=== PATIENT | female | born 1985 | race Caucasian/White ===

== ENCOUNTER 2016-07-27 20:53 | Emergency (ER) | payer OTHER ==
[2016-07-27] MEDS ORDERED: IBUPROFEN 800 MG TABLET PO STA (21:27)
[2016-07-27] MEDS ORDERED: AZITHROMYCIN 250 MG TABLET PO STA (21:27)
[2016-07-27] MEDS ORDERED: IBUPROFEN 800 MG TABLET PO ONE (21:31)
[2016-07-27] MEDS ORDERED: AZITHROMYCIN 250 MG TABLET PO ONE ×2 (21:31→21:35)
== END 2016-07-27 21:41 | disposition home or self-care (01) ==
DX: J06.9 Acute upper respiratory infection, unspecified (principal); B97.89 Other viral agents as the cause of diseases classified elsewhere; H66.001 Acute suppurative otitis media without spontaneous rupture of ear drum, right ear; J45.909 Unspecified asthma, uncomplicated; F17.200 Nicotine dependence, unspecified, uncomplicated
CPT/HCPCS: 99282; 99283; A9270

== ENCOUNTER 2017-01-02 11:21 | Emergency (ER) | payer MEDICAID, OTHER ==
[2017-01-02] MEDS ORDERED: HYDROcod/ACETAM 5/325 MG TABLET PO STA (12:21)
[2017-01-02] MEDS ORDERED: CEPHALEXIN 250 MG CAPSULE PO STA (12:21)
[2017-01-02] MEDS ORDERED: HYDROcod/ACETAM 5/325 MG TABLET ONE (12:25)
[2017-01-02] MEDS ORDERED: CEPHALEXIN 250 MG CAPSULE PO ONE (12:25)
== END 2017-01-02 12:38 | disposition home or self-care (01) ==
DX: K08.89 Other specified disorders of teeth and supporting structures (principal); K02.9 Dental caries, unspecified; J45.909 Unspecified asthma, uncomplicated; F17.200 Nicotine dependence, unspecified, uncomplicated
CPT/HCPCS: 99283; A9270

== ENCOUNTER 2017-09-01 14:03 | Emergency (ER) | payer MEDICAID, OTHER ==
--- NOTE | 2017-09-01 15:47 | ED Physician Documentation ---
PD HPI UPPER EXT INJURY - Stated complaint Stated Complaint: R WRIST PAIN/NUMBNESS - Chief complaint Chief Complaint: Ext Problem - History obtained from History obtained from: Patient - History of Present Illness Location: Right, Wrist Type of injury: Other (Client care) Where injury occurred: Work Timing - onset: How many days ago (2) Timing - duration: Days (2) Timing - details: Gradual onset, Still present Improved by: Rest Worsened by: Moving, Palpating Associated symptoms: Numbness. 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 She states she has never had this happen to her previously but she does have been a bit of numbness in the fourth and fifth digits and some pain over the thumb. She did not injure this that she is aware of. She does use her wrist a lot at work and more recently. She states it is impossible for her to be . Review of Systems Constitutional: denies: Fever Eyes: denies: Decreased vision Ears: denies: Ear pain Nose: denies: Congestion Throat: denies: Sore throat Respiratory: denies: Cough GI: denies: Abdominal Pain, Nausea, Vomiting : denies: Dysuria, Frequency Skin: denies: Rash, Lesions, Abrasion (s) Musculoskeletal: reports: Extremity pain. denies: Neck pain, Back pain, Joint pain, Extremity swelling, Joint swelling Neurologic: reports: Numbness. 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 : None HEENT: None Psych: Depression, Anxiety, Panic attacks, Claustrophobia Musculoskeletal: None Derm: None - Past Surgical History Past Surgical History: Yes HEENT: Tonsil/Adenoidectomy - Present Medications Home Medications: Ambulatory Orders Medication Instructions Recorded Confirmed No Known Home Medications [No 09/01/17 09/01/17 Known Home Medications] - Allergies Allergies/Adverse Reactions: Allergies Allergy/AdvReac Type Severity Reaction Status Date / Time codeine [Codeine] Allergy Itching Verified 01/02/17 11:26 - Social History Does the pt smoke?: Yes Smoking Status: Current every day smoker Does the pt drink ETOH?: Yes Does the pt have substance abuse?: Yes - Immunizations Immunizations are current?: Yes - POLST Patient has POLST: No PD ED PE NORMAL - Vitals Vital signs reviewed: Yes - General General: Alert and oriented X 3, No acute distress, Well developed/nourished - HEENT HEENT: Atraumatic, PERRL - Respiratory Respiratory: No respiratory distress - Derm Derm: Normal color, Warm and dry, No rash - Extremities Extremities: No deformity, No edema, Other (There is no pain elicited to palpation of the median nerve.) - Neuro Neuro: Alert and oriented X 3, primer and powder canning leader 2-12 intact, No motor deficit, No sensory deficit, Normal speech Eye Opening: Spontaneous Motor: Obeys Commands Verbal: Oriented GCS Score: 15 - Psych Psych: Normal mood, Normal affect Results - Vitals Vitals: Vital Signs - 24 hr 09/01/17 09/01/17 14:07 17:36 Temperature 36.8 C 36.5 C Heart Rate 100 85 Respiratory 18 20 Rate Blood Pressure 141/92 H 130/77 O2 Saturation 100 99 Oxygen O2 Source Room air - Rads (name of study) right wrist Radiology: Prelim report reviewed (impression: no bony subluxation or abnormality), EMP read indepedently, See rad report Procedures - Splint (location) right wrist Splint applied by: Tech Type of splint: Fiberglass, Volar cock up Other: Patient tolerated well, No complications, Neurovascular intact, Good alignment PD MEDICAL DECISION MAKING - ED course Complexity details: reviewed results, re-evaluated patient, considered differential, d/w patient ED course: 31-year-old female with right wrist pain has a dorsal ganglion cyst but I am not able to feel at this time and this does not appear to be involved in the patient's complaint. She does have pain on the volar surface of the wrist and numbness into the fourth and fifth digits. I was not able to confirm carpal tunnel I am concerned mostly about that as her etiology. We have placed her into a splint for comfort and I have asked her follow-up with orthopedics. Departure - Departure Disposition: 01 Home, Self Care Clinical Impression: Carpal tunnel syndrome of right wrist Condition: Stable Instructions: ED Carpal Tunnel Follow-Up: Ofe Elkins DO [Primary Care Provider] - [facility] [Provider Group] Discharge Date/Time: 09/01/17 17:38
--- NOTE | 2017-09-01 17:28 | XRAY Preliminary Report ---
Exam: XR WRIST 4 VIEW RT IMPRESSION: No bony deformity or subluxation. [facility] SITE ID: [id number]
--- NOTE | 2017-09-01 17:28 | XRAY Report ---
EXAM: RIGHT WRIST RADIOGRAPHY EXAM DATE: 09/01/2017 05:03 PM. CLINICAL HISTORY: Volar thumb pain and numbness to 4,5. COMPARISON: None. TECHNIQUE: 4 views. FINDINGS: Bones: Normal. No fractures or bone lesions. Joints: Normal. No subluxations. Soft Tissues: No foreign body or abnormal calcifications. IMPRESSION: No bony deformity or subluxation. [facility] Referring Provider Line: [phone] SITE ID: [id number]
[2017-09-01] MEDS ORDERED: ACETAMINOPHEN 325 MG TABLET PO STA (17:30)
[2017-09-01 17:37] VITALS: BP 130/77
== END 2017-09-01 17:38 | disposition home or self-care (01) ==
LOC: ED 14:03
DX: G56.01 Carpal tunnel syndrome, right upper limb (principal); M67.431 Ganglion, right wrist; F17.200 Nicotine dependence, unspecified, uncomplicated
CPT/HCPCS: 29125; 73110; 99283; A9270

== ENCOUNTER 2018-02-16 18:07 | Emergency (ER) | payer SELFPAY ==
[2018-02-16 18:21] VITALS: BP 112/79
[2018-02-16] MEDS ORDERED: KETOROLAC 60 MG/2 ML VIAL IM STA (20:12)
--- NOTE | 2018-02-16 20:15 | ED Physician Documentation ---
History of Present Illness - Stated complaint Stated Complaint: LT ELBOW/CP/HEADACHE - Chief complaint Chief Complaint: General - History obtained from History obtained from: Patient, Family - History of Present Illness Timing: How many days ago (5-6) Pain level max: 7 Pain level now: 5 - Additonal information Additional information: Patient is a 32-year-old female who presents to the emergency department with multiple complaints. The first is left elbow pain ongoing for the last month. States it is on the lateral aspect of the elbow worse with movement, better with rest. States started after cleaning a friend's house. She also complains of a headache, frontal, gradual in onset. Similar to prior headaches. States 6 out of 10. She also complains of left-sided chest pain radiating to the left arm for the past 5 days. Nothing makes it better or worse. No change with movement, palpation or deep breathing. No recent travel, no recent immobilization. 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 : None HEENT: None Psych: Depression, Anxiety, Panic attacks, Claustrophobia Musculoskeletal: None Derm: None - Past Surgical History Past Surgical History: Yes HEENT: Tonsil/Adenoidectomy - Present Medications Home Medications: Ambulatory Orders Medication Instructions Recorded Confirmed Meloxicam [Mobic] 15 mg PO DAILY PRN #20 tablet 02/16/18 - Allergies Allergies/Adverse Reactions: Allergies Allergy/AdvReac Type Severity Reaction Status Date / Time codeine [Codeine] Allergy Itching Verified 02/16/18 18:21 - Social History Does the pt smoke?: Yes Smoking Status: Current every day smoker Does the pt drink ETOH?: Yes Does the pt have substance abuse?: Yes - Immunizations Immunizations are current?: Yes - POLST Patient has POLST: No PD ED PE NORMAL - Vitals Vital signs reviewed: Yes - General General: Alert and oriented X 3, No acute distress, Well developed/nourished - HEENT HEENT: Atraumatic, PERRL, EOMI, Ears normal, Moist mucous membranes, Pharynx benign - Neck Neck: Supple, no meningeal sign - Cardiac Cardiac: RRR, Strong equal pulses - Respiratory Respiratory: No respiratory distress, Clear bilaterally - Abdomen Abdomen: Soft, Non tender, Non distended - Derm Derm: Warm and dry - Extremities Extremities: No deformity, No tenderness to palpate, Normal ROM s pain, No calf tenderness / cord - Neuro Neuro: Alert and oriented X 3, community reinvestment act officer 2-12 intact, No motor deficit, No sensory deficit, Normal speech Eye Opening: Spontaneous Motor: Obeys Commands Verbal: Oriented GCS Score: 15 - Psych Psych: Normal mood, Normal affect Results - Vitals Vitals: Vital Signs - 24 hr 02/16/18 18:19 Temperature 36.8 C Heart Rate 96 Respiratory 18 Rate Blood Pressure 112/79 O2 Saturation 99 Oxygen O2 Source Room air - EKG (time done) 1833 Rate: Rate (enter#) (102) Rhythm: Sinus tachycardia [place]: Normal Intervals: Normal [place] QRS: Normal Ischemia: Non specific changes - Labs Labs: Laboratory Tests 02/16/18 02/16/18 02/16/18 20:31 20:31 20:31 WBC 10.3 RBC 4.92 Hgb 15.1 Hct 43.4 MCV 88.1 MCH 30.7 MCHC 34.8 RDW 13.5 Plt Count 365 MPV 7.5 L Neut # (Auto) 6.6 Lymph # (Auto) 2.7 [place] # (Auto) 0.6 Eos # (Auto) 0.1 Baso # (Auto) 0.3 H Absolute Nucleated RBC 0.01 Nucleated RBC % 0.0 Sodium 140 Potassium 3.7 Chloride 103 Carbon Dioxide 29 Anion Gap 8.0 BUN 13 Creatinine 0.8 Estimated GFR (MDRD) 84 L Glucose 110 H Calcium 9.5 Total Bilirubin 0.5 AST 21 ALT 29 Alkaline Phosphatase 81 Troponin I < 0.04 Total Protein 8.3 H Albumin 4.5 Globulin 3.8 Albumin/Globulin Ratio 1.2 Lipase 47 - Rads (name of study) cxr Radiology: Prelim report reviewed, EMP read contemporaneously, See rad report ( normal) PD MEDICAL DECISION MAKING - ED course Complexity details: reviewed results, re-evaluated patient, considered differential, d/w patient, d/w family ED course: Patient is a 32-year-old female with multiple complaints. Appears to have lateral epicondylitis of the left elbow. Will place on NSAIDs for this. Also given Toradol in the emergency department for her headache. Headache resolved. Chest pain is of unclear etiology. It is not pleuritic. No risk factors for PE. No immobilization, travel etc. Normal cardiac workup. We will have her follow-up with her doctor for further care. Patient counseled regarding signs and symptoms for which I believe and urgent re-evaluation would be necessary. Patient with good understanding of and agreement to plan and is comfortable going home at this time This document was made in part using voice recognition software. While efforts are made to proofread this document, sound alike and grammatical errors may occur. - Sepsis Event Vital Signs: Vital Signs - 24 hr 02/16/18 18:19 Temperature 36.8 C Heart Rate 96 Respiratory 18 Rate Blood Pressure 112/79 O2 Saturation 99 Oxygen O2 Source Room air Departure - Departure Disposition: 01 Home, Self Care Clinical Impression: Lateral epicondylitis of elbow Qualifiers: Laterality: left Qualified Code(s): M77.12 - Lateral epicondylitis, left elbow Chest pain Qualifiers: Chest pain type: unspecified Qualified Code(s): R07.9 - Chest pain, unspecified Headache Qualifiers: Headache type: unspecified Headache chronicity pattern: unspecified pattern Intractability: not intractable Qualified Code(s): R51 - Headache Condition: Good Instructions: ED Chest Pain Atypical Unkn Cause, ED Cephalgia Unspecified, ED Epicondylitis Lateral Elbow Follow-Up: your,doctor in 1 week [Other] Prescriptions: Meloxicam [Mobic] 15 mg PO DAILY PRN #20 tablet PRN Reason: pain Comments: Return if you worsen. This should improve over the next few days. Your tests are normal today. Discharge Date/Time: 02/16/18 21:05
--- NOTE | 2018-02-16 20:36 | XRAY Report ---
Procedure Date: 02/16/2018 Accession Number: [id number] / [id number] Procedure: XR - Chest 1 View X-Ray CPT Code: 73715 FULL RESULT: EXAM: CHEST RADIOGRAPHY EXAM DATE: 02/16/2018 08:24 PM. CLINICAL HISTORY: Chest pain. COMPARISON: XR CHEST PA AND LAT 07/26/2010. TECHNIQUE: 1 view. FINDINGS: Lungs/Pleura: No focal opacities evident. No pleural effusion. No pneumothorax. Mediastinum: Within exam limitations, the cardiomediastinal contour is normal. Other: None. IMPRESSION: Normal single view chest. [facility]
[2018-02-16 20:38] LABS: BASOPHILS # (AUTO) 0.3 10^3/uL (0.0-0.1); BASOPHILS % (AUTO) 2.9 %; EOSINOPHILS # (AUTO) 0.1 10^3/uL (0.0-0.7); EOSINOPHILS % (AUTO) 1.1 %; HGB - HEMOGLOBIN 15.1 g/dL (12.0-16.0); LYMPHOCYTES # (AUTO) 2.7 10^3/uL (1.5-3.5); LYMPHOCYTES % (AUTO) 26.2 %; MEAN CORPUSCULAR HEMOGLOBIN 30.7 pg (27.0-31.0); MEAN CORPUSCULAR HGB CONC 34.8 g/dL (32.0-36.0); MEAN CORPUSCULAR VOLUME 88.1 fL (81.0-99.0); MEAN PLATELET VOLUME 7.5 fL (7.9-10.8); MONOCYTES # (AUTO) 0.6 10^3/uL (0.0-1.0); MONOCYTES % (AUTO) 6.1 %; NEUTROPHILS # (AUTO) 6.6 10^3/uL (1.5-6.6); NEUTROPHILS % (AUTO) 63.7 %; PLT - PLATELET COUNT 365 10^3/uL (130-450); RED BLOOD COUNT 4.92 10^6/uL (4.20-5.40); RED CELL DISTRIBUTION WIDTH 13.5 % (12.0-15.0); WHITE BLOOD COUNT 10.3 x10^3/uL (4.8-10.8)
[2018-02-16 20:49] LABS: ALBUMIN 4.5 g/dL (3.2-5.5); ALBUMIN/GLOBULIN RATIO 1.2 (1.0-2.2); BILIRUBIN,TOTAL 0.5 mg/dL (0.2-1.0); CALCIUM 9.5 mg/dL (8.5-10.3); CREATININE 0.8 mg/dL (0.4-1.0); TOTAL PROTEIN 8.3 g/dL (6.7-8.2)
== END 2018-02-16 21:05 | disposition home or self-care (01) ==
LOC: ED 18:07
DX: M77.12 Lateral epicondylitis, left elbow (principal); R07.9 Chest pain, unspecified; R51 Headache; F17.200 Nicotine dependence, unspecified, uncomplicated
CPT/HCPCS: 36415; 71045; 80053; 83690; 84484; 85025; 93005; 96372; 99283

== ENCOUNTER 2019-09-01 08:00 | Outpatient (CLI) | payer MEDICAID ==
[2019-09-01 18:49] LABS: ALBUMIN 3.9 g/dL (3.2-5.5); ALBUMIN/GLOBULIN RATIO 1.3 (1.0-2.2); BILIRUBIN,TOTAL 0.4 mg/dL (0.2-1.0); CALCIUM 9.2 mg/dL (8.5-10.3); CREATININE 0.7 mg/dL (0.4-1.0)
[2019-09-01 18:50] LABS: BASOPHILS % (AUTO) 0.7 %; EOSINOPHILS # (AUTO) 0.2 10^3/uL (0.0-0.7); EOSINOPHILS % (AUTO) 2.9 %; LYMPHOCYTES # (AUTO) 1.7 10^3/uL (1.5-3.5); MEAN CORPUSCULAR HEMOGLOBIN 29.1 pg (27.0-31.0); MEAN CORPUSCULAR HGB CONC 31.7 g/dL (32.0-36.0); MEAN CORPUSCULAR VOLUME 91.7 fL (81.0-99.0); MEAN PLATELET VOLUME 9.9 fL (7.9-10.8); MONOCYTES # (AUTO) 0.3 10^3/uL (0.0-1.0); MONOCYTES % (AUTO) 5.8 %; NEUTROPHILS # (AUTO) 3.6 10^3/uL (1.5-6.6); NEUTROPHILS % (AUTO) 61.3 %; PLT - PLATELET COUNT 324 10^3/uL (130-450); RED BLOOD COUNT 4.47 10^6/uL (4.20-5.40); RED CELL DISTRIBUTION WIDTH 13.1 % (12.0-15.0); WHITE BLOOD COUNT 5.9 x10^3/uL (4.8-10.8)
== END 2019-09-01 23:59 | disposition home or self-care (01) ==
LOC: LAB.N 08:00
PROVIDERS: ATTEND Physician Assistant Medical
DX: N94.6 Dysmenorrhea, unspecified (principal)
CPT/HCPCS: 36415; 80053; 84443; 85025

== ENCOUNTER 2020-09-15 08:26 | Emergency (ER) | payer MEDICAID ==
--- NOTE | 2020-09-15 08:39 | ED Physician Documentation ---
History of Present Illness - Stated complaint Stated Complaint: TOOTH PX/FACE SWELLING - Chief complaint Chief Complaint: Heent - History obtained from History obtained from: Patient - Additonal information Additional information: Patient comes emergency department chief complaint of left maxillary wisdom tooth pain and swelling of her left cheek. Patient states that the tooth has been coming in and out and is broken and decayed. She states she has been needing to get it pulled but has not been able to do so yet. She states this morning, she woke up with swelling of her cheek. No fevers or chills. No tongue or throat swelling. No difficulty speaking or swallowing. No difficulty breathing. No other complaints at this time. Review of Systems Ten Systems: 10 systems reviewed and negative Constitutional: reports: Reviewed and negative Eyes: reports: Reviewed and negative Ears: reports: Reviewed and negative Nose: reports: Reviewed and negative Throat: reports: Dental pain / toothache Cardiac: reports: Reviewed and negative Respiratory: reports: Reviewed and negative GI: reports: Reviewed and negative : reports: Reviewed and negative Skin: reports: Reviewed and negative Musculoskeletal: reports: Reviewed and negative Neurologic: reports: Reviewed and negative Psychiatric: reports: Reviewed and negative Endocrine: reports: Reviewed and negative Immunocompromised: reports: Reviewed and negative PD PAST MEDICAL HISTORY - Past Medical History Past Medical History: Yes Cardiovascular: None Respiratory: Asthma Neuro: None Endocrine/Autoimmune: None GI: None 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 : None HEENT: None Psych: Depression, Anxiety, Panic attacks, Claustrophobia Musculoskeletal: None Derm: None - Past Surgical History Past Surgical History: Yes HEENT: Tonsil/Adenoidectomy - Present Medications Home Medications: Ambulatory Orders Medication Instructions Recorded Confirmed Amoxicillin 500 mg PO TID 7 Days #21 cap 09/15/20 HYDROcod/ACETAM 5/325 [[place] 5/325] 1 - 2 ea PO Q6H PRN #15 tablet 09/15/20 - Allergies Allergies/Adverse Reactions: Allergies Allergy/AdvReac Type Severity Reaction Status Date / Time codeine [Codeine] Allergy Itching Verified 09/15/20 08:31 - Social History Does the pt smoke?: Yes Smoking Status: Current every day smoker Does the pt drink ETOH?: Yes Does the pt have substance abuse?: Yes Substance Use and Type: Marijuana - Immunizations Immunizations are current?: Yes - POLST Patient has POLST: No PD ED PE NORMAL - Vitals Vital signs reviewed: Yes - General General: Alert and oriented X 3, No acute distress, Well developed/nourished - HEENT HEENT: Atraumatic, PERRL, EOMI, Moist mucous membranes, Other (Tenderness noted over the maxillary gingiva on the left, without swelling. Moderate left facial edema. No induration or fluctuance.No tongue swelling or lifting of oral floor. Overall good dentition, except decay of left maxillary wisdom tooth) - Neck Neck: Supple, no meningeal sign - Respiratory Respiratory: No respiratory distress - Derm Derm: Normal color, Warm and dry, No rash - Extremities Extremities: No deformity - Neuro Neuro: Alert and oriented X 3, clinical microbiologist 2-12 intact, Normal speech - Psych Psych: Normal mood, Normal affect Results - Vitals Vitals: Vital Signs - 24 hr 09/15/20 08:31 Temperature 36.4 C L Heart Rate 78 Respiratory 18 Rate Blood Pressure 113/66 O2 Saturation 100 Oxygen O2 Source Room air PD MEDICAL DECISION MAKING - ED course Complexity details: considered differential, d/w patient ED course: The patient was given a dose of amoxicillin in the emergency department. I have given her prescriptions for amoxicillin and Vicodin. She states she is going to call [facility] dental clinic today. We have discussed the usual indications for return. Departure - Departure Disposition: 01 Home, Self Care Clinical Impression: Dental infection Condition: Stable Instructions: ED Abscess Tooth Prescriptions: Amoxicillin 500 mg PO TID 7 Days #21 cap HYDROcod/ACETAM 5/325 [[place] 5/325] 1 - 2 ea PO Q6H PRN #15 tablet PRN Reason: Pain
[2020-09-15] MEDS ORDERED: AMOXICILLIN 250 MG CAPSULE PO STA (08:43)
[2020-09-15 08:56] VITALS: BP 105/69
== END 2020-09-15 08:56 | disposition home or self-care (01) ==
LOC: ED 08:26
DX: K04.7 Periapical abscess without sinus (principal); K02.9 Dental caries, unspecified; F17.200 Nicotine dependence, unspecified, uncomplicated
CPT/HCPCS: 99282; 99284; A9270

== ENCOUNTER 2023-09-23 03:07 | Outpatient (CLI) | payer MEDICAID | END 2023-09-23 23:59 | disposition critical access hospital (66) | LOC: EMS 03:07 | DX: R10.9 Unspecified abdominal pain (principal) | CPT/HCPCS: A0425; A0429; A0999 ==

== ENCOUNTER 2023-09-23 03:27 | Emergency (ER) | payer MEDICAID ==
--- NOTE | 2023-09-23 03:37 | ED Physician Documentation ---
PD HPI ABD PAIN - Stated complaint Stated Complaint: LOWER ABD PX - Chief complaint Chief Complaint: Abd Pain - History obtained from History obtained from: Patient - Additional information Additional information: BIBA. HPI from patient. Patient c/o epigastric abdominal pain, rapid onset while at rest at home approximately 30 minutes prior to calling 911. Denies h/o similar pain. Denies nausea, vomiting, fever. Denies chances of . There was no inciting event nor are there exacerbating or ameliorating factors. Pain is sharp and does not radiate. Review of Systems Constitutional: denies: Fever Cardiac: reports: Reviewed and negative Respiratory: reports: Reviewed and negative GI: reports: Abdominal Pain. 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 : None HEENT: None Psych: Depression, Anxiety, Panic attacks, Claustrophobia Musculoskeletal: None Derm: None - Past Surgical History Past Surgical History: Yes HEENT: Tonsil/Adenoidectomy - Present Medications Home Medications: Ambulatory Orders Medication Instructions Recorded Confirmed Amoxicillin 500 mg PO TID 7 Days #21 cap 09/15/20 HYDROcod/ACETAM 5/325 [[place] 5/325] 1 - 2 ea PO Q6H PRN #15 tablet 09/15/20 - Allergies Allergies/Adverse Reactions: Allergies Allergy/AdvReac Type Severity Reaction Status Date / Time codeine [Codeine] Allergy Itching Verified 09/15/20 08:31 - Social History Does the pt smoke?: Yes Smoking Status: Current every day smoker Does the pt drink ETOH?: Yes Does the pt have substance abuse?: Yes - Immunizations Immunizations are current?: Yes - POLST Patient has POLST: No PD ED PE NORMAL - Vitals Vital signs reviewed: Yes - General General: No acute distress, Well developed/nourished, Other (asleep, awakens to verbal with gentle tactile stimulation (shoulder shake)) - HEENT HEENT: Moist mucous membranes - Cardiac Cardiac: RRR, No murmur - Respiratory Respiratory: No respiratory distress, Clear bilaterally - Abdomen Abdomen: Soft, Non distended PD ED PE EXPANDED - Abdomen Abdomen: Tender to palpation, Epigastric. No: Rebound, Guarding Results - Vitals Vitals: Oxygen O2 Source Room air - Labs Labs: Laboratory Tests 09/23/23 09/23/23 04:30 04:30 WBC 6.9 RBC 3.80 L Hgb 10.7 L Hct 33.3 L MCV 87.6 MCH 28.2 MCHC 32.1 RDW 13.1 Plt Count 256 MPV 9.2 Neut # (Auto) 5.5 Lymph # (Auto) 0.8 L [place] # (Auto) 0.5 Eos # (Auto) 0.1 Baso # (Auto) 0.0 Absolute Nucleated RBC 0.00 Nucleated RBC % 0.0 Sodium 138 Potassium 4.0 Chloride 104 Carbon Dioxide 31 Anion Gap 3.0 L BUN 21 H Creatinine 0.7 Estimated GFR (MDRD) 95 Glucose 122 H Calcium 9.0 Total Bilirubin 0.3 AST 17 ALT 20 Alkaline Phosphatase 74 Total Protein 5.9 L Albumin 3.6 Globulin 2.3 Albumin/Globulin Ratio 1.6 Lipase 43 - Rads (name of study) CT A/P with IV contrast Relevant Findings:: Prelim report reviewed, See rad report PD Medical Decision Making - ED course Complexity details: reviewed results, re-evaluated patient, considered differential, d/w patient ED course: No concerning nor diagnostic findings on tonights tests including blood tests, CT A/P. Mildly low hgb/hct noted but not to extent that would be contributory to presentation nor require further emergent testing. CT A/P shows increased stool burden and findings s/o bronchiectasis and/or atelectasis (on low cuts into thorax). Results d/w patient. She does not feel constipated and thus stool burden finding is likely incidental although remains possible cause or contributing factor. She is in NAD on initial evaluation as well as reevaluation prior to d/c. Return precautions reviewed. I advised her to follow up with PCP for reevaluation of symptoms as well as CT findings of bronchiectasis/atelectasis Departure - Departure Disposition: 01 Home, Self Care Clinical Impression: Abdominal pain Condition: Good Instructions: ED Abdominal Pain Female Non-Specific Abdominal Pain Comments: There were no concerning nor diagnostic findings on tonight's tests including blood tests and the CT scan of your abdomen. The cause of your abdominal pain is not apparent at this time. Follow up with your primary care provider for reevaluation, next available appointment Forms: PCP List Discharge Date/Time: 09/23/23 08:40
[2023-09-23 05:03] LABS: BASOPHILS % (AUTO) 0.6 %; HCT - HEMATOCRIT 33.3 % (37.0-47.0); HGB - HEMOGLOBIN 10.7 g/dL (12.0-16.0); MEAN CORPUSCULAR HEMOGLOBIN 28.2 pg (27.0-31.0); MEAN CORPUSCULAR HGB CONC 32.1 g/dL (32.0-36.0); MEAN CORPUSCULAR VOLUME 87.6 fL (81.0-99.0); RED CELL DISTRIBUTION WIDTH 13.1 % (12.0-15.0)
[2023-09-23 05:15] LABS: EOSINOPHILS # (AUTO) 0.1 10^3/uL (0.0-0.7); EOSINOPHILS % (AUTO) 1.7 %; LYMPHOCYTES # (AUTO) 0.8 10^3/uL (1.5-3.5); LYMPHOCYTES % (AUTO) 11.3 %; MEAN PLATELET VOLUME 9.2 fL (7.9-10.8); MONOCYTES # (AUTO) 0.5 10^3/uL (0.0-1.0); MONOCYTES % (AUTO) 6.9 %; NEUTROPHILS # (AUTO) 5.5 10^3/uL (1.5-6.6); NEUTROPHILS % (AUTO) 79.2 %; PLT - PLATELET COUNT 256 10^3/uL (130-450); WHITE BLOOD COUNT 6.9 x10^3/uL (4.8-10.8)
[2023-09-23 05:23] LABS: ALBUMIN 3.6 g/dL (3.2-5.5); ALBUMIN/GLOBULIN RATIO 1.6 (1.0-2.2); BILIRUBIN,TOTAL 0.3 mg/dL (0.2-1.0); CREATININE 0.7 mg/dL (0.6-1.3); TOTAL PROTEIN 5.9 g/dL (6.4-8.9)
[2023-09-23] MEDS ORDERED: iohexoL-300 100 ML VIAL ONE (05:32)
[2023-09-23] MEDS: iohexoL-300 100 ML VIAL IVP ONE (06:16)
[2023-09-23 07:43] VITALS: BP 86/45; O2SAT 95
--- NOTE | 2023-09-23 07:51 | CT Report ---
PROCEDURE: Abdomen/Pelvis W INDICATIONS: abdominal pain CONTRAST: 100 ml omni 300 TECHNIQUE: After the administration of intravenous contrast, a CT scan of the abdomen and pelvis was performed. Images were recorded and evaluated at appropriate window settings. Reformats: coronal and sagittal. F or radiation dose reduction, the following was used: automated exposure control, adjustment of mA and /or kV according to patient size. COMPARISON: 11/23/2013 FINDINGS: Image quality: Diagnostic Lower chest: There is mild focal bronchiectasis and atelectasis in the superior medial portion of the right lower lobe, partially visualized. No dense airspace disease or pleural effusions. Liver: Unremarkable Gallbladder and biliary system: Unremarkable, there is mild biliary ductal dilation, CBD measuring 7 to 8 mm. Pancreas: No ductal dilation Spleen: Upper limit of normal at 13 cm Adrenals: No discrete nodules Kidneys: No solid mass or hydronephrosis Vessels and lymph nodes: The main portal vein appears patent. No abdominal aortic aneurysm. No pathol ogic lymph nodes by size criteria. Bowel and peritoneum: No evidence of small bowel obstruction or drainable abscess or ascites. The carlin endix appears nondilated. There is moderate to large fecal loading. Body wall: Unremarkable Pelvis: Bladder is unremarkable. The reproductive organs are unremarkable on limited CT evaluation co nsider ultrasound if there is concern Bones: Degenerative changes of the pubic symphysis again seen, with mild erosive findings, likely seq uela of osteitis pubis. IMPRESSION: Moderate to large fecal loading. No evidence of small bowel obstruction. The appendix appears nondila [place]. Mild focal bronchiectasis and atelectasis in the superior medial portion of the right lower lobe, par tially seen, Consider future imaging surveillance to assess for resolution. Other findings as above. Reviewed by: Alec Judge MD on 09/23/2023 7:50 AM PDT Approved by: Alec Judge MD on 09/23/2023 7:50 AM PDT Station ID: [id number]
== END 2023-09-23 08:40 | disposition home or self-care (01) ==
LOC: EDUNIT# → ED 03:27
DX: R10.13 Epigastric pain (principal); F17.200 Nicotine dependence, unspecified, uncomplicated
CPT/HCPCS: 36415; 74177; 80053; 83690; 85025; 99284; Q9967